=== PATIENT | male | born 1955 | race African-American/Black ===

== ENCOUNTER 2017-09-17 06:35 | Day surgery (SDC) | payer OTHER ==
[~2017-09-17] VITALS: Ht 172.7 cm; Wt 71.8 kg
[2017-09-17] MEDS ORDERED: SODIUM CHLORIDE 0.9% 1000ML 1,000 ML IV ONE (06:49)
[2017-09-17 07:07] VITALS: BP 110/68
[2017-09-17] MEDS ORDERED: TAMS0.4C32 PO (07:22)
[2017-09-17] MEDS ORDERED: MVIT PO (07:22)
[2017-09-17] MEDS ORDERED: VITA1CAP85 PO (07:22)
[2017-09-17] MEDS ORDERED: FINA5TAB41 PO (07:22)
[2017-09-17] MEDS ORDERED: OMEG-116 PO (07:22)
[2017-09-17] MEDS ORDERED: PROPOFOL 10 MG/ML 20ML VIAL IV ONE ×2 (08:06)
[2017-09-17 08:28] VITALS: BP 97/56
== END 2017-09-17 09:05 | disposition home or self-care (01) ==
LOC: ENDO 06:35 → DAH 06:35 → ENDO 09:05
PROVIDERS: ATTEND Internal Medicine Gastroenterology
DX: Z12.11 Encounter for screening for malignant neoplasm of colon (principal); G47.33 Obstructive sleep apnea (adult) (pediatric); N40.0 Benign prostatic hyperplasia without lower urinary tract symptoms; E78.5 Hyperlipidemia, unspecified; Z79.899 Other long term (current) drug therapy; Z68.31 Body mass index [BMI] 31.0-31.9, adult; G47.00 Insomnia, unspecified
CPT/HCPCS: 45378; A4606; J2704 ×2; J7030

== ENCOUNTER 2019-10-05 21:18 | Emergency (ER) | payer OTHER ==
[~2019-10-05 21:18] MED LIST: FINA5TAB41 PO; MVIT PO; OMEG-116 PO; TAMS0.4C32 PO; VITA1CAP85 PO
[2019-10-05] MEDS ORDERED: KETOROLAC TROMETHAMINE 60 MG/2 ML VIAL ONE (23:02)
== END 2019-10-06 00:31 | disposition home or self-care (01) ==
LOC: EDH 21:18
DX: S22.32XA Fracture of one rib, left side, initial encounter for closed fracture (principal); S40.012A Contusion of left shoulder, initial encounter; S80.211A Abrasion, right knee, initial encounter; X58.XXXA Exposure to other specified factors, initial encounter; Y93.89 Activity, other specified; Y92.89 Other specified places as the place of occurrence of the external cause; Y99.8 Other external cause status
CPT/HCPCS: 71101; 73000; 73030; 96372; 99284; J1885

== ENCOUNTER → 2019-10-20 | Outpatient (CLI) | payer OTHER | END | disposition home or self-care (01) | LOC: RAH 11:17 | PROVIDERS: ATTEND Internal Medicine | DX: M25.522 Pain in left elbow (principal) ==

== ENCOUNTER → 2019-11-07 | Outpatient (CLI) | payer OTHER | END | disposition home or self-care (01) | LOC: RAH 07:35 | PROVIDERS: ATTEND Internal Medicine | DX: M25.512 Pain in left shoulder (principal); V18.2XXA Unspecified pedal cyclist injured in noncollision transport accident in nontraffic accident, initial encounter | CPT/HCPCS: 73221 ==

== ENCOUNTER → 2021-03-03 | Outpatient (CLI) | payer OTHER ==
[2021-03-03 09:12] LABS: APPEARANCE,URINE Clear (CLEAR); BILIRUBIN,URINE Negative (NEGATIVE); COLOR,URINE Yellow (YELLOW); GLUCOSE, URINE (UA) Negative (NEGATIVE); KETONES,URINE Negative (NEGATIVE); LEUKOCYTE ESTERASE ,URINE Negative (NEGATIVE); NITRATE,URINE Negative (NEGATIVE); OCCULT BLOOD,URINE Negative (NEGATIVE); PH,URINE 6.5 (5.0-8.0); PROTEIN,URINE Negative (NEGATIVE)
== END | disposition home or self-care (01) ==
LOC: MERGE 08:31 → LAB 08:31
PROVIDERS: ATTEND Internal Medicine
DX: Z00.00 Encounter for general adult medical examination without abnormal findings (principal); R53.83 Other fatigue; R31.29 Other microscopic hematuria
CPT/HCPCS: 36415; 81003; 83735; 84403

== ENCOUNTER 2021-04-25 06:55 | Day surgery (SDC) | payer OTHER ==
[2021-04-24 09:24] VITALS: BP 132/66
[~2021-04-25] VITALS: Ht 170.2 cm; Wt 70.4 kg
[2021-04-25] VITALS (15 sets, daily range): BP systolic 101–131; BP diastolic 59–82
[~2021-04-25 06:55] MED LIST changes: +ASCO500C18 PO
[2021-04-25] MEDS ORDERED: LACTATED RINGERS 1000ML 1,000 ML IV ONE (07:47)
[2021-04-25] MEDS: CEFTRIAXONE 1G VIAL ONE ×2 (08:17→09:30)
[2021-04-25] MEDS ORDERED: FENTANYL CITRATE PF 50 MCG/1 ML 2ML VIAL ONE (09:27)
[2021-04-25] MEDS ORDERED: PROPOFOL 10 MG/ML 20ML VIAL IV ONE (09:27)
[2021-04-25] MEDS ORDERED: LIDOCAINE PF 100MG/5ML (2%) SYRINGE 5ML ONE (09:27)
[2021-04-25] MEDS ORDERED: MIDAZOLAM HCL 1 MG/ML 2ML VIAL ONE (09:27)
[2021-04-25] MEDS ORDERED: OPIUM/BELLADONNA ALKALOIDS 1 EACH SUPP.RECT RC ONE (10:39)
[2021-04-25] MEDS ORDERED: ONDANSETRON 4MG INJ ONE (10:40)
[2021-04-25] MEDS ORDERED: PHENAZOPYRIDINE HCL 200 MG TABLET ONE (12:20)
== END 2021-04-25 12:40 | disposition home or self-care (01) ==
LOC: DAH 06:55
PROVIDERS: ATTEND Urology
DX: N40.1 Benign prostatic hyperplasia with lower urinary tract symptoms (principal); R39.14 Feeling of incomplete bladder emptying; Z20.822 Contact with and (suspected) exposure to COVID-19; N32.89 Other specified disorders of bladder; G47.30 Sleep apnea, unspecified; K21.9 Gastro-esophageal reflux disease without esophagitis; Z72.89 Other problems related to lifestyle; Z87.891 Personal history of nicotine dependence
CPT/HCPCS: 52648; 87635; A4215; A4221; A4222; A4223; A4340; A4354; A4358 ×2; A4510; A4600; A4663; C9803; J0696; J2001; J2250; J2405; J2704; J3010; J7120 ×2

== ENCOUNTER 2021-05-02 11:42 | Emergency (ER) | payer OTHER ==
[~2021-05-02] VITALS: Ht 170.2 cm; Wt 71.2 kg
[~2021-05-02 11:42] MED LIST changes: -MVIT PO; -OMEG-116 PO
[2021-05-02 11:43] VITALS: BP 154/86
[2021-05-02] MEDS ORDERED: ACETAMINOPHEN 500 MG TABLET PO SCH (12:30)
[2021-05-02 13:00] LABS: BASOPHILS % (AUTO) 0.7 % (0.0-5.0); EOSINOPHILS % (AUTO) 2.7 % (0.0-8.0); HEMATOCRIT 38.6 % (42-54); LYMPHOCYTES % (AUTO) 28.4 % (21.0-51.0); MEAN CORPUSCULAR HEMOGLOBIN 31.5 pg (27.0-33.0); MEAN CORPUSCULAR HGB CONC 33.2 g/dL (32.0-36.0); MEAN CORPUSCULAR VOLUME 95.1 fL (79-99); MONOCYTES % (AUTO) 14.7 % (3.0-13.0); NEUTROPHILS % (AUTO) 53.1 % (40.0-77.0); PLATELET COUNT (AUTO) 191 K/uL (130-400); RED BLOOD CELL COUNT(AUTO) 4.06 MIL/uL (4.50-6.20); RED CELL DISTRIBUTION WIDTH 11.2 % (11.0-15.5); WHITE BLOOD COUNT (AUTO) 5.5 K/uL (4.8-10.8)
[2021-05-02 13:24] LABS: CREATININE 1.1 mg/dL (0.5-1.5)
[2021-05-02 13:33] LABS: ALBUMIN 3.7 g/dL (3.5-5.0); BILIRUBIN,TOTAL 0.2 mg/dL (0.2-1.0); TOTAL PROTEIN, SERUM 7.4 g/dL (6.0-8.3)
[2021-05-02] MEDS ORDERED: ACET-2247 PO (13:41)
== END 2021-05-02 14:20 | disposition home or self-care (01) ==
LOC: EDH 11:42
DX: M79.672 Pain in left foot (principal); M79.675 Pain in left toe(s); M79.662 Pain in left lower leg; Z20.822 Contact with and (suspected) exposure to COVID-19
CPT/HCPCS: 36415; 73630; 80053; 84484; 85025; 93971

== ENCOUNTER → 2021-11-10 | Outpatient (CLI) | payer OTHER ==
[~2021-11-10] MED LIST changes: +ACET-2247 PO
[2021-11-10 08:19] LABS: APPEARANCE,URINE CLEAR (CLEAR); BILIRUBIN,URINE NEGATIVE (NEGATIVE); COLOR,URINE YELLOW (YELLOW); GLUCOSE, URINE (UA) NEGATIVE (NEGATIVE); KETONES,URINE NEGATIVE (NEGATIVE); LEUKOCYTE ESTERASE ,URINE NEGATIVE (NEGATIVE); NITRATE,URINE NEGATIVE (NEGATIVE); OCCULT BLOOD,URINE NEGATIVE (NEGATIVE); PROTEIN,URINE NEGATIVE (NEGATIVE); UROBILINOGEN,URINE 0.2 mg/dL (0.2-1.0)
== END | disposition home or self-care (01) ==
LOC: LAB 06:55
PROVIDERS: ATTEND Internal Medicine
DX: Z00.00 Encounter for general adult medical examination without abnormal findings (principal); R53.83 Other fatigue; R31.29 Other microscopic hematuria
CPT/HCPCS: 36415; 81003; 83735; 84402; 84403

== ENCOUNTER 2022-02-10 14:38 | Emergency (ER) | payer OTHER ==
[~2022-02-10] VITALS: Ht 170.2 cm; Wt 70.3 kg
[2022-02-10] MEDS ORDERED: KETOROLAC 60 MG VIAL (30MG/ML) IM SCH (14:58)
[2022-02-10 15:54] VITALS: BP 122/68
[2022-02-10] MEDS ORDERED: TETANUS/DIPHTHERIA TOXOID [ADULT] 0.5 ML VIAL IM STA (16:00)
[2022-02-10] MEDS ORDERED: TETANUS/DIPHTHERIA TOXOID [ADULT] 0.5 ML VIAL IM ONE (16:02)
[2022-02-10] MEDS ORDERED: NAPR375T6 PO (16:03)
[2022-02-10] MEDS ORDERED: BACITRACIN 1 EACH PACKET TP ONE (16:07)
== END 2022-02-10 16:13 | disposition home or self-care (01) ==
LOC: EDH 14:38
DX: S50.812A Abrasion of left forearm, initial encounter (principal); S60.415A Abrasion of left ring finger, initial encounter; S10.91XA Abrasion of unspecified part of neck, initial encounter; S40.212A Abrasion of left shoulder, initial encounter; Z98.890 Other specified postprocedural states; Z79.899 Other long term (current) drug therapy; V49.49XA Driver injured in collision with other motor vehicles in traffic accident, initial encounter; Y93.89 Activity, other specified; Y92.413 State road as the place of occurrence of the external cause; Y99.8 Other external cause status
CPT/HCPCS: 99284; 70450; 90714; 73090; 73120; 73030; 72125; 96372; 90471; J1885

== ENCOUNTER → 2022-06-09 | Outpatient (CLI) | payer OTHER ==
[~2022-06-09] MED LIST changes: +NAPR375T6 PO
[2022-06-09 08:18] LABS: BASOPHILS % (AUTO) 0.7 % (0.0-5.0); HEMATOCRIT 43.5 % (42-54); LYMPHOCYTES % (AUTO) 37.9 % (21.0-51.0); MEAN CORPUSCULAR HGB CONC 33.1 g/dL (32.0-36.0); MEAN CORPUSCULAR VOLUME 96.7 fL (79-99); MONOCYTES % (AUTO) 10.2 % (3.0-13.0); PLATELET COUNT (AUTO) 195 K/uL (130-400); RED CELL DISTRIBUTION WIDTH 11.7 % (11.0-15.5); WHITE BLOOD COUNT (AUTO) 4.3 K/uL (4.8-10.8)
[2022-06-09 08:26] LABS: HEMOGLOBIN A1C 5.7 % (4.0-6.0)
[2022-06-09 08:31] LABS: CREATININE 1.1 mg/dL (0.5-1.5); POTASSIUM 4.3 mmol/L (3.5-5.1); TOTAL PROTEIN, SERUM 7.6 g/dL (6.0-8.3)
== END | disposition home or self-care (01) ==
LOC: LAB 07:19
PROVIDERS: ATTEND Internal Medicine
DX: I10 Essential (primary) hypertension (principal); E78.2 Mixed hyperlipidemia; N40.1 Benign prostatic hyperplasia with lower urinary tract symptoms; Z13.1 Encounter for screening for diabetes mellitus
CPT/HCPCS: 36415; 80053; 80061; 83036; 84153; 84154; 85025

== ENCOUNTER 2022-10-23 15:29 | Emergency (ER) | payer OTHER ==
[~2022-10-23] VITALS: Ht 170.2 cm; Wt 74.8 kg
[2022-10-23 15:31] VITALS: BP 156/97
[2022-10-23] MEDS ORDERED: AMOX1TAB16 PO (16:34)
== END 2022-10-23 19:10 | disposition home or self-care (01) ==
LOC: EDH 15:29
DX: M79.671 Pain in right foot (principal); Z79.899 Other long term (current) drug therapy; Z98.890 Other specified postprocedural states; W55.01XA Bitten by cat, initial encounter; Y93.89 Activity, other specified; Y92.89 Other specified places as the place of occurrence of the external cause; Y99.8 Other external cause status

== ENCOUNTER → 2024-05-22 | Outpatient (CLI) | payer MEDICARE ==
[~2024-05-22] MED LIST changes: +AMOX1TAB16 PO; +NAPR-1505 PO; -NAPR375T6 PO
--- NOTE | 2024-05-22 09:50 | HMCIMG ---
US ABDOMINAL COMPLETE HISTORY: Epigastric pain COMPARISON: None TECHNIQUE: Multiple transverse and longitudinal ultrasound images of the abdomen were obtained. FINDINGS: Abdominal aorta and inferior vena cava are unremarkable. The visualized portion of the pancreas is within normal limits. Liver measures 12.7 cm. There is right hepatic cyst measuring 11 mm gallstone is seen in the gallbladder neck region. Common duct measures 5 mm. No evidence of gallbladder wall thickening is seen. Both kidneys are seen. Right kidney measures 9.8 x 4.9 x 4.4 cm. Left kidney measures 10.8 x 5.3 x 4.4 cm. No hydronephrosis is seen of the both kidneys. The spleen is grossly unremarkable. IMPRESSION: 1. Gallstone in the gallbladder neck. No ductal dilatation is seen. 2. No hydronephrosis is seen.
== END | disposition home or self-care (01) ==
LOC: RAH 08:53
PROVIDERS: ATTEND Internal Medicine
DX: K80.80 Other cholelithiasis without obstruction (principal); K76.89 Other specified diseases of liver; R10.13 Epigastric pain; Z87.19 Personal history of other diseases of the digestive system
CPT/HCPCS: 76700